=== PATIENT | female | born 1950 | race Caucasian/White ===

== ENCOUNTER → 2023-06-05 12:40 | Outpatient (CLI) | payer MEDICARE, OTHER, SELFPAY ==
--- NOTE | 2023-06-05 12:43 | DI.RAD.S_ITS ---
PROCEDURE: FL JOINT INJECTION LARGE RT INDICATIONS: DJD RT HIP COMPARISON: None. TECHNIQUE: The indications, alternatives, benefits, risks, and complications of the procedure were explained to the patient. Written informed consent was obtained and placed in the chart. The patient was placed in an appropriate position on the fluoroscopy table, and a site was chosen for percutaneous access under fluoroscopic guidance. The site was prepped and draped in a sterile fashion. Local anesthetic was administered using a 1% lidocaine solution. A hypodermic or spinal needle was then used to access the symptomatic joint. Intra-articular location of the needle tip was confirmed by injecting a small amount of contrast, followed by steroid administration. The needle was then withdrawn, and a bandage applied to the puncture site. FINDINGS: Joint injected: Right hip Medications injected: 4 mL of 40 mg/mL Kenalog and 0.5% Ropivacaine mixture. Complications: None. IMPRESSION: Successful fluoroscopically guided administration of steroid and anaesthetic solution into the right hip joint. Dictated by: Galdino Recinos M.D. on 06/05/2023 at 16:51 Approved by: Galdino Recinos M.D. on 06/05/2023 at 16:51
[2023-06-05] MEDS: iopamidoL 50 ML VIAL 10 ML INTRA-ARTI (13:40)
[2023-06-05] MEDS: LIDOCAINE 1% 20 ML INJ (13:40)
[2023-06-05] MEDS: ROPIVACAINE 0.5% PF 5 MG/ML 20ML VIAL 20 ML INJ (13:41)
[2023-06-05] MEDS: TRIAMCINOLONE 40 MG/ML VIAL INTRA-ARTI (13:42)
== END ==
PROVIDERS: Family Provider Internal Medicine; PCP Internal Medicine; Referring Provider Physician Assistant Surgical; Visit Provider Physician Assistant Surgical
DX: M16.11 Unilateral primary osteoarthritis, right hip (principal)
CPT/HCPCS: 20610; 77002

== ENCOUNTER → 2023-08-18 10:34 | Outpatient (CLI) | payer MEDICARE, OTHER, SELFPAY ==
--- NOTE | 2023-08-18 10:35 | DI.MRI.S_ITS ---
PROCEDURE: MR LUMBAR SPINE WO CON INDICATIONS: Spondylosis , lumbar region TECHNIQUE: Noncontrast sagittal T1 spin echo and T2 fast echo, sagittal STIR, and T2 fast spin echo through the lumbar spine. In cases with scoliosis, additional coronal T2 fast spin echo may be performed. COMPARISON: [facility], CR, XR LUMBAR SPINE 2 OR 3 VIEWS, 08/05/2023, 14:03. FINDINGS: Image quality: Excellent. Alignment and Curvature: Relatively mild levocurvature is centered at L3-L4. Retrolisthesis of L4 on L5 measures 8 mm. No pars defects are noted. Bone Marrow: Marrow is of normal overall signal. No acute vertebral body compression fractures. Spinal Cord: Conus medullaris terminates at the L1-L2 level. Visualized cord demonstrates normal signal and size. Paraspinous Soft Tissues: No paravertebral masses. T12-L1: No canal stenosis or foraminal stenosis. L1-L2: Severe disc height loss. Posterior disc post osteophyte. Bilateral facet hypertrophy. Mild central canal stenosis. A mild right foraminal narrowing and moderate left foraminal narrowing. L2-L3: Chronic disc height loss. Diffuse disc bulge. Facet and ligament hypertrophy. Moderate to severe canal stenosis, well seen on axial image 11 of series 7. There is severe narrowing of the medial aspect of the right foramen with right foraminal L2 nerve root impingement. Reference sagittal image 6 of series 2. There is moderate left foraminal narrowing with mild flattening deformity on the exiting left L2 nerve root. L3-L4: Severe chronic disc height loss. Posterior osteophyte plus disc. Facet hypertrophy. No significant canal stenosis. Severe right foraminal narrowing with right foraminal L3 nerve root impingement. Reference sagittal image 7 of series 2. There is moderate left foraminal narrowing with mild flattening deformity on the exiting left L3 nerve root. L4-L5: 8 mm anterolisthesis of L4 on L5. Uncovering of the disc, with diffuse posterior disc bulge. Exuberant facet and ligament hypertrophy. Moderate to severe central canal stenosis. Reference sagittal image 9 of series 2. Marked right foraminal narrowing with right foraminal L4 nerve root impingement. Reference sagittal image 7 of series 2. Moderate left foraminal narrowing with flattening deformity on the exiting left L4 nerve root. L5-S1: Diffuse disc bulge, eccentric to the left. Prominent bilateral facet hypertrophy. Mild narrowing of the left side of the canal. Moderate to severe left foraminal narrowing with a degree of left foraminal L5 nerve root impingement. IMPRESSION: 1. There is underlying scoliotic curvature and there is extensive multilevel facet arthropathy. 2. Canal stenosis is mild at L1-L2, moderate to severe at L2-L3, and moderate to severe at L4-L5. There is mild narrowing of the left side of the canal at L5-S1. 3. Significant multilevel foraminal narrowing as described above. Findings include severe right foraminal narrowing at L2-L3 and L3-L4, marked right foraminal narrowing at L4-L5, and moderate to severe left foraminal narrowing at L5-S1. There is multilevel associated foraminal nerve root impingement. Dictated by: Eddie Tay M.D. on 08/18/2023 at 12:11 Approved by: Eddie Tay M.D. on 08/18/2023 at 12:21
== END ==
LOC: MRI 10:34
PROVIDERS: Family Provider Internal Medicine; PCP Internal Medicine; Referring Provider Orthopaedic Surgery Orthopaedic Surgery of the Spine; Visit Provider Orthopaedic Surgery Orthopaedic Surgery of the Spine
DX: M47.816 Spondylosis without myelopathy or radiculopathy, lumbar region (principal); M47.817 Spondylosis without myelopathy or radiculopathy, lumbosacral region; M48.061 Spinal stenosis, lumbar region without neurogenic claudication; M48.07 Spinal stenosis, lumbosacral region; M41.9 Scoliosis, unspecified
CPT/HCPCS: 72148

== ENCOUNTER → 2023-12-15 09:45 | Outpatient (CLI) | payer MEDICARE, OTHER, SELFPAY ==
--- NOTE | 2023-12-15 10:25 | EKG_ITS ---
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
[2023-12-15 12:03] LABS: Add Manual Diff / Slide Review NO; Basophils Absolute Auto 0 /uL (0-100); Basophils Percent Auto 0.8 % (0-2); Eosinophils Absolute Auto 100 /uL (0-450); Eosinophils Percent Auto 2.2 % (2-4); Hemoglobin 13.9 g/dL (12.0-16.0); Lymphocytes Absolute Auto 1300 /uL (1100-4500); Lymphocytes Percent Auto 24.3 % (25-40); Mean Corpuscular HGB Conc 34.8 % (30-36); Mean Corpuscular Hemoglobin 30.7 PG (26-34); Mean Corpuscular Volume 88.3 fL (80-100); Monocytes Absolute Auto 400 /uL (0-900); Neutrophils Absolute Auto 3600 /uL (1500-7000); Neutrophils Percent Auto 65.7 % (50-75); Platelet Count 380 X10^3/uL (150-400); Red Blood Cell Count 4.53 X10^6/uL (4.0-5.2); Red Cell Distribution Width 12.8 % (11.6-14.8); White Blood Cell Count 5.5 X10^3/uL (4.5-11.0)
[2023-12-15 12:09] LABS: Hemoglobin A1C% w Est Avg Glu 5.6 % (4.0-6.0)
[2023-12-15 12:10] LABS: Albumin 4.5 g/dL (3.5-5.0); BUN Creatinine Ratio 29.3 (6-22); Blood Urea Nitrogen 22 mg/dL (7-17); Carbon Dioxide 28 mmol/L (22-32); Chloride 103 mmol/L (98-107); Estimated Glomerular Filt Rate > 60 mL/min (>60); Glucose 88 mg/dL (80-110); HEMOLYSIS < 15 (0-50); Potassium 4.1 mmol/L (3.4-5.1); Sodium 139 mmol/L (137-145)
[2023-12-15 12:17] LABS: Prealbumin 35.2 mg/dL (17.6-36.0)
[2023-12-15 12:28] LABS: Vitamin D 25 Hydroxy (D3) 62.9 ng/mL (30.0-100.0)
== END ==
PROVIDERS: Family Provider Internal Medicine; PCP Internal Medicine; Referring Provider Orthopaedic Surgery Adult Reconstructive Orthopaedic Surgery; Visit Provider Orthopaedic Surgery Adult Reconstructive Orthopaedic Surgery
DX: Z01.818 Encounter for other preprocedural examination (principal); E55.9 Vitamin D deficiency, unspecified; R73.9 Hyperglycemia, unspecified; Z01.812 Encounter for preprocedural laboratory examination; R77.0 Abnormality of albumin
CPT/HCPCS: 36415; 80048; 82040; 82306; 83036; 84134; 85025; 93005

== ENCOUNTER 2024-03-29 06:00 | Day surgery (SDC) | payer MEDICARE, OTHER, SELFPAY ==
[2024-03-22 09:23] VITALS: BMI 25.7
[2024-03-29] VITALS (17 sets, daily range): BP systolic 80–144; BP diastolic 39–82; PULSE 48–71; RESP 12–23; TEMP 36.1–36.8; O2SAT 94–100; BMI 25.7
--- NOTE | 2024-03-29 | DI.RAD.S_ITS ---
PROCEDURE: XR HIP W PEL IF DONE RT 2V INDICATIONS: ANTERIOR HIP TECHNIQUE: Two views of the hip were acquired. COMPARISON: [facility], CR, XR HIP W PEL IF DONE RT 2V, 03/29/2024, 9:26. FINDINGS: Bones: There are no osseous abnormalities. SI and hip joints: Right total hip prosthesis is anatomically aligned. Left hip and both SI joints are normal with align with arthritic change. Soft tissues: Soft tissue swelling and gas over the surgical site seen as expected IMPRESSION: Right hip prostheses anatomic alignment Dictated by: Alexx Gaines M.D. on 03/30/2024 at 9:24 Approved by: Aelxx Gaines M.D. on 03/30/2024 at 9:24
--- NOTE | 2024-03-29 06:00 | DI.RAD.S_ITS ---
PROCEDURE: XR HIP W PEL IF DONE RT 2V INDICATIONS: TKA TECHNIQUE: Intraoperative fluoroscopy during right hip arthroplasty. COMPARISON: None. FINDINGS: Intraoperative fluoroscopy for right hip arthroplasty. The joint is congruent. No unexpected fractures. IMPRESSION: Intraoperative fluoroscopy for right hip arthroplasty. Dictated by: Berkley Guerra M.D. on 03/29/2024 at 20:48 Approved by: Berkley Guerra M.D. on 03/29/2024 at 20:49
[2024-03-29] MEDS: MELOXICAM 7.5 MG TABLET 15 MG PO (06:45)
[2024-03-29] MEDS: ACETAMINOPHEN 325 MG TABLET 975 MG PO (06:45)
[2024-03-29] MEDS: LACTATED RINGERS 1,000 ML 42 ML IV ×2 (06:46→09:52)
[2024-03-29 07:18] LABS: COVID19 -Nasal RAPID Negative (Negative)
--- NOTE | 2024-03-29 07:47 | PM.PREOP ---
Pre-operative Note Interval Note History & Physical reviewed/Exam performed by Physician: Yes Changes to H&P: Yes H&P completed within 30 days and has changed as indicated here:: Patient reports recent onset of chest fullness particularly when lying down. No known history of CHF. This has been present for a week. We are going to check a BNP to evaluate for a new onset diagnosis of CHF before we move forward with surgery today
--- NOTE | 2024-03-29 07:52 | EKG_ITS ---
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
[2024-03-29 07:56] LABS: Add Manual Diff / Slide Review NO; Basophils Absolute Auto 0 /uL (0-100); Basophils Percent Auto 0.8 % (0-2); Eosinophils Absolute Auto 100 /uL (0-450); Eosinophils Percent Auto 1.8 % (2-4); Hematocrit 37.2 % (36-46); Hemoglobin 12.7 g/dL (12.0-16.0); Lymphocytes Absolute Auto 1100 /uL (1100-4500); Lymphocytes Percent Auto 25.3 % (25-40); Mean Corpuscular Hemoglobin 30.1 PG (26-34); Mean Corpuscular Volume 88.5 fL (80-100); Monocytes Absolute Auto 400 /uL (0-900); Monocytes Percent Auto 10.1 % (3-14); Neutrophils Absolute Auto 2700 /uL (1500-7000); Platelet Count 295 X10^3/uL (150-400); Red Blood Cell Count 4.21 X10^6/uL (4.0-5.2); White Blood Cell Count 4.4 X10^3/uL (4.5-11.0)
[2024-03-29 08:21] LABS: NT-proBNP (BNP-Adult 18+) < 20 pg/mL (<125)
--- NOTE | 2024-03-29 08:26 | PM.PN.1 ---
Subjective Subjective Interval history: BNP returned normal. Anesthesia team agrees with plan for moving forward with surgery based on this. I will have the patient remain in the hospital for at least one night and get respiratory therapy. She should get an outpatient workup for her symptoms from her PCP after discharge but at this time all members of the care team are in agreement with moving forward with the surgery today. Exam Vital Signs (past 8 hours): - 03/29/24 07:19 Temperature 97.6 F Pulse Rate 71 Respiratory Rate 12 Blood Pressure 143/80 H Pulse Oximetry 99 Oxygen Delivery Method Room Air Oxygen Delivery Method Room Air Objective Labs 03/29/24 07:50 Labs: Laboratory Results - last 24 hr 03/29/24 03/29/24 06:50 07:50 WBC 4.4 L RBC 4.21 Hgb 12.7 Hct 37.2 MCV 88.5 MCH 30.1 MCHC 34.0 RDW 13.0 Plt Count 295 Neut % (Auto) 62.0 Lymph % (Auto) 25.3 [place] % (Auto) 10.1 Eos % (Auto) 1.8 L Baso % (Auto) 0.8 Neut # (Auto) 2700 Lymph # (Auto) 1100 [place] # (Auto) 400 Eos # (Auto) 100 Baso # (Auto) 0 NT-Pro-B Natriuret Pep < 20 SARS-CoV-2 (PCR) Negative PFSH Medical History (Updated 03/22/24 @ 10:15 by Maira Sams RN) Rosacea Arthritis Pre-diabetes Impaired fasting glucose Hyperglycemia Spinal stenosis Seasonal allergies Hearing loss Anemia Vitamin D deficiency Osteoarthritis History of COVID-19 (10/2022) HTN (hypertension) HLD (hyperlipidemia) Surgical History (Updated 03/22/24 @ 10:12 by Maira Sams RN) History of carpal tunnel surgery of left wrist (2017) History of hysterectomy (2002) Hx of bilateral cataract extraction (2018) Hx of colonoscopy Social History household members: spouse Smoking Status: Never smoker alcohol intake: current Assessment & Plan Time-Based Coding :: [TOTAL MINUTES] spent with patient and on the chart (including review of chart, obtaining history, exam, reviewing outside data, placing orders, documenting exam and treatment plan, and counseling patient) on [DATE].
[2024-03-29] MEDS: CEFAZOLIN 2 GM/100 ML PREMIX 100 ML IV ×2 (08:40→16:21)
[2024-03-29] MEDS: TRANEXAMIC ACID 1,000 MG VIAL 1000 MG INJ ×2 (08:45→10:00)
--- NOTE | 2024-03-29 09:07 | SUR.OPER ---
Patient supine on padded Bath table, both arms on padded arm board at <90, both legs secured in padded traction boots and positioned per surgeon, padded post at patient's groin, pressure points checked and padded.
[2024-03-29] MEDS: ROPIVACAINE/EPI/CLONIDINE/KET 50 ML SYRINGE INJ (09:12)
--- NOTE | 2024-03-29 10:03 | P.OP_ITS ---
Operative Date/Time/Diagnoses Date of procedure: 03/29/24 Pre-op diagnosis: Right hip osteoarthritis Post-op diagnosis: same Procedure & Clinicians Procedure: Right total hip arthroplasty Same procedure as scheduled: Yes Surgeon: James Beatty Crusher Feeder: Citlali Freitas Anesthesia Type: Spinal, Sedation and Local Operative Notes Estimated Blood Loss (mL): 150 Procedure in detail: Right Uncemented Direct Anterior Depuy Total Hip Arthroplasty: Implants: * [place] Gription size 54 cup? * Actis femoral stem size 5 high offset? * 36 mm +5 ceramic femoral head? Procedure Summary: This 73-year-old female patient had symptoms of chest fullness when lying supine for the week preceding surgery so prior to moving forward with surgery today we got a BNP to ensure she had not had the onset of a new diagnosis of CHF. That returned normal so we elected to move forward with the surgery and will admit her overnight for respiratory therapy and plan for an outpatient workup with her primary care doctor regarding her chest symptoms. Intraoperatively I utilized templated implants for all parameters with the exception of the cup size, which was 1 size larger than had been templated for. Trialing was appropriate with all parameters with the initially trialed implants so those sizes were utilized. She had relatively lax soft tissues and I was able to achieve significant femoral elevation without a conjoined tendon release while broaching the femur. Procedure in Detail: This patient was seen preoperatively and evaluated for hip pain which was refractory to numerous nonoperative treatment modalities. Their hip pain correlated with radiographic changes demonstrating significant degeneration in the hip joint. The risks and benefits of continued nonoperative management v ersus operative management were discussed at length and all of the patient?s questions were answered. Additional educational materials providing further details beyond our discussion in clinic were provided via a publicly available patient education video which included the incidence of medical complications associated with total hip arthroplasty, reasons for revision following total hip arthroplasty, and patient satisfaction rates following total hip arthroplasty. That video can be accessed at [email or web address] . With this understanding of the risks inherent to the procedure, the patient elected to move forward with operative management. Following preoperative optimization, the patient was scheduled for surgery. The patient was met in the preoperative holding area the day of the procedure and all questions were answered. The patient?s nares were swabbed with betadine in order to decolonize them from MRSA. Informed consent was signed and the right limb was marked with indelible ink.? The patient was brought back to the operating room where anesthesia was induced. The patient was transferred to the [place] table and all bony prominences were padded. The operative site was prepped and draped in the usual sterile fashion. Prior to incision, tranexamic acid and cefazolin were administered. Operative templating images were displayed demonstrating the anticipated implant sizes and correct operative extremity. A timeout procedure was performed verifying the patient?s identity, medical comorbidities, allergies, relevant medications, anesthesia type and the surgical plan. All present were in agreement. The assistance of a physician legal executive assistant was required for positioning, room setup, soft tissue retraction and wound closure. Without this assistance, the procedure would have been significantly more challenging and time consuming.?? A direct anterior approach to the hip was utilized. This was performed with a longitudinal incision through a He[place] interval. The incision was planned 2 cm distal and 2 cm lateral to the ASIS extending towards the lateral patella, in line with the muscle body of the TFL. Following incision, the subcutaneous tissue was dissected while taking care to avoid injury to the lateral femoral cutaneous nerve. The fascia overlying the TFL was identified by dissecting off the overlying fat and identifying perforating vessels to the TFL. The TFL fascia was incised and dissected away from the medial border of the TFL. A cobra retractor was placed over the superior femoral neck between the abductors and the hip capsule and used to reflect the TFL laterally. A [place] self-retainer was then placed in the distal aspect of the wound between the TFL and the rectus femoris. This was tensioned to open up the direct anterior interval and the lateral circumflex vessels were identified and coagulated using electrocautery. The floor of the TFL fascia was incised, exposing the pericapsular fat overlying the hip capsule. A second cobra retractor was placed on the inferior femoral neck. A double-bent soft tissue retractor was placed on the anterior wall of the acetabulum and used to tension the reflected head of rectus femoris, which was then released in order to limit soft tissue tension. A capsulotomy was made in the midline of the anterior hip capsule in line with the femoral neck ending at the vastus tubercle. The double-bent retractor was removed in order to limit the amount of time that a soft tissue retractor remained on the anterior wall and protect the femoral nerve. Tag stitches were placed in the superior and inferior leaflets of the hip capsule. An [place] soft tissue retractor was introduced over the tag stitches and tensioned in the interval between the rectus femoris and the TFL in order to retract and protect those muscles. The cobra retractors were replaced intracapsularly, with one over the superior neck in the pocket created by the base of the greater trochanter and the other on the femoral head. The capsulotomy was extended laterally to the base of the greater trochanter and medially to the lesser trochanter. This required externally rotating the hip. Once the lesser trochanter had been identified, a neck cut was planned according to measurements from preoperative templating. A ruler was cut at the length measured between the superior aspect of the lesser trochanter and the collar of the prosthesis. This line was extended towards the inferior aspect of the lateral cobra retractor to plan a cut which would leave minimal residual femoral neck laterally. The neck was cut at 60 degrees of external rotation along that line. A second cut was performed to remove a large napkin ring and facilitate head extraction. The napkin ring cut and femoral head were removed.?? A broad anterior wall retractor was placed between the labrum and the anterior capsule so that the anterior capsule would prevent capturing and pinching the femoral nerve anteriorly. An additional retractor was placed on the posterior wall. External rotation and traction were applied through the [place] table so that the cut surface of the femoral neck would not restrict access to the acetabulum. The labrum was excised sharply and the pulvinar was excised with electrocautery to limit bleeding from branches of the obturator artery. Acetabular reamers were selected based on preoperative templating and measurements of the excised femoral head. These were introduced into the acetabulum. Fluoroscopy was utilized to replicate a standing AP pelvis radiograph by centering over the pelvis, rotating until there was appropriate symmetry between the obturator foramen, and introducing caudal tilt to match the position of the pubic symphysis relative to the sacrococcygeal junction according to the patient?s anatomy. Fluoroscopy was utilized to ensure appropriate reaming depth. Once satisfied with the reaming depth corresponding to the preoperative template and the pinch fit between the columns, an appropriate sized acetabular cup was selected which would provide 1 mm of press-fit. This cup was introduced and manipulated until appropriate abduction and anteversion angles were obtained with careful attention to appropriate abduction and anteversion angles as evaluated by the position of the cup relative to the anterior and posterior wa lls of the acetabulum and the AP fluoroscopy which recreated the patient?s standing radiograph. The cup was impacted into place. Peripheral osteophytes were removed. The acetabular liner was then placed with care to ensure locking of the locking mechanism.? Attention was then turned to the femur. All retractors were removed, traction was released, a retractor was placed in the interval between the hip capsule and the gluteus minimus, and the hip was externally rotated to 90 degrees. Traction was applied through the [place] table to tension the lateral capsule and this was released using electrocautery. Traction was released and a [place] hook was placed posteriorly around the proximal femur at the level of the vastus ridge. The table height was lowered in order to restrict the tension on the anterior structures during hip hyperextension to limit the risk of femoral nerve palsy. With traction off and the hip at 90 degrees of external rotation, the hip was hyperextended and adducted while manually elevating the femur away from the acetabulum with the [place] hook to ensure it would not be caught behind the greater trochanter. An asymmetric retractor was placed over the calcar and a broad double-pronged retractor was placed over the greater trochanter. The tag stitch capturing the lateral leaflet of the capsule was moved to the medial side, leaving the conjoined and piriformis tendons isolated in the face of the greater trochanter. The hip was externally rotated and elevated. A release of the conjoined tendon was not necessary in order to obtain adequate exposure for broaching. The canal was opened with an opening broach and a rasp was used to remove cancellous bone. A rongeur was used to remove the residual lateral bone at the base of the greater trochanter to avoid placing the stem in varus. The femur was then broached to the appropriate sized stem yielding good rotational fit and fill of the canal as well as appropriate version of the stem trial. Neck and head trials were placed, all retractors were removed and the hip was returned to neutral abduction and extension. I then reduced the hip. Initial trialing was performed with a size 5 broach, a high offset neck and a +5 head. I initially manually externally rotated the hip and found no instability with maximum external rotation to 125?. I then locked the hip in 45 degrees of external rotation and dropped it to the floor with traction off which demonstrated no instability. An AP pelvis fluoroscopic image matching the preoperative standing radiograph with both lesser trochanters visible and both hips in 40 degrees of external rotation demonstrated appropriate leg length and offset. AP and lateral hip fluoroscopic images were obtained to evaluate the broach size which demonstrated appropriate canal fill. The hip was dislocated and I returned to the broaching position. Based on my evaluation during initial trialing I planned to place these definitive implants. The definitive stem was placed and the trunnion was cleaned and dried. I placed a ceramic head onto the trunnion and impacted it into place on the [place] taper.?? All retractors were removed and the hip was reduced. A dilute mixture of betadi ne and peroxide was used to bathe the soft tissues during final fluoroscopic assessment. Appropriate component positioning was confirmed on an AP pelvis radiograph with the operative and nonoperative legs in 40 degrees of external rotation, evaluating leg length and offset. Appropriate stem fill was evaluated on AP and lateral hip radiographs. No fractures were identified on these radiographs. There was no hip instability with maximum (125?) external rotation as well as a 45 degree drop test. The hip was copiously irrigated with pulse lavage. The capsule was closed with absorbable interrupted suture. The TFL fascia was closed with barbed suture while carefully protecting the lateral femoral cutaneous nerve from entrapment. A mixture of Ropivacaine, Epinephrine, Clonidine and Toradol was infiltrated throughout the soft tissues. The skin was closed with 2-0 and 3-0 sutures. Surgical glue was applied and a soft dressing was placed.??The sponge, instrument and needle counts were reported as being correct at the end of the case.??No obvious complications occurred. The patient was transferred from the [place] table back to a stretcher. The patient emerged from anesthesia without difficulty and was taken to the PACU in a stable condition.? Plan for aftercare: * Anterior hip precautions * Weightbearing as tolerated * Aspirin 81 twice per day for DVT prophylaxis * Anticipate discharge home tomorrow * Respiratory therapy to be ordered during her hospital stay given her symptoms of chest fullness in the week preceding surgery * Change into normal clothes upon arrival on the hospital floor * Mobilize in the halls as much as is logistically possible. If physical therapy is unavailable for mobilization, then patient should mobilize with nursing staff * Multimodal pain regimen with no IV opioids ordered * Apply ice machine to operative hip. Ensure that sufficient ice is in the chamber for the pad to remain cold * Follow up at [facility] in 2 weeks * Detailed postoperative instructions available at [email or web address]
[2024-03-29] MEDS: ALBUMIN HUMAN 12.5 GM/250 ML VIAL IV ×2 (10:56→11:30)
[2024-03-29] MEDS: IBUPROFEN 600 MG TABLET PO ×2 (13:17→17:45)
[2024-03-29] MEDS: ACETAMINOPHEN 325 MG TABLET 650 MG PO ×2 (13:18→17:43)
--- NOTE | 2024-03-29 13:19 | PC.NURSE ---
Pt to room 203 via bed from PACU. Awake alert and oriented x 3. Pt denies pain, nausea, or shortness of breath. SCD's on and running, IV infusing as ordered. Bed alarm on for safety. Ice machine to right hip. Pt oriented to room call light, bed controls and tv controls. Pt agrees to not get up without assistance and to call for assistance as needed.
--- NOTE | 2024-03-29 14:12 | PT.IIE ---
Current Diagnoses Unilateral primary osteoarthritis, right hip (03/29/24) Surgery Performed Operation Date: 03/29/24 07:45 Actual Procedures p Total Hip Arthroplasty/Anterior Approach(Right) - James Beatty MD Surgical History (Last Updated 03/22/24 @ 10:12 by Maira Sams, RN) History of carpal tunnel surgery of left wrist (2016) History of hysterectomy (2001) Hx of bilateral cataract extraction (2017) Hx of colonoscopy Medical History (Last Updated 03/22/24 @ 10:15 by Maira Sams RN) Anemia Arthritis Hearing loss History of COVID-19 (10/2022) HLD (hyperlipidemia) HTN (hypertension) Hyperglycemia Impaired fasting glucose Osteoarthritis Pre-diabetes Rosacea Seasonal allergies Spinal stenosis Vitamin D deficiency Physical Therapy Inpatient Evaluation/Re-Eval M1 PT/OT-IP Prior Functional Status Start: 03/29/24 13:48 Freq: NEEDED Status: Active Protocol: Document 03/29/24 13:50 MB (Rec: 03/29/24 14:12 MB [id number]) Medical Review Prior Functional Status Medical History Reviewed Yes Diet/Fluid Consistency Regular Communication WNLs Mobility and Gait I Activities of Daily Living and IADL's I Social History Household Members spouse Living Arrangements House Number of Stairs To Enter/Railing? Pt reports she does not have to do stairs to enter home or once inside Home Environment Standard Height Toilet,Walk in Shower Home Equipment Front Wheel Walker,Shower Seat without Backrest,Hand Held Shower,Grab Bars In Shower Employment Status Retired M2 PT-IP Current Condition Start: 03/29/24 13:48 Freq: NEEDED Status: Active Protocol: Document 03/29/24 13:50 MB (Rec: 03/29/24 14:12 MB [id number]) Physical Therapy Current Condition Current Condition Evaluation Date 03/29/24 Treatment Diagnosis R anterior THR M3 PT-IP Subjective Start: 03/29/24 13:48 Freq: NEEDED Status: Active Protocol: Document 03/29/24 13:50 MB (Rec: 03/29/24 14:12 MB [id number]) Subjective Physical Therapy Visit Type Type Initial Evaluation Visit Start Time 13:50 Visit Stop Time 14:05 Number of INFORMATION SCIENTIST Visits 0 Physical Therapy Visit Comments Patient Comments Pt reports she has some numbness in feet but she can move her legs, initiated eval and check for orthostasis Therapy Pain Assessment Pain When Pain Assessed At Rest Pain Present Pain Present Denied Pain M4 PT-IP Mobility and Gait Start: 03/29/24 13:48 Freq: NEEDED Status: Active Protocol: Document 03/29/24 13:50 MB (Rec: 03/29/24 14:12 MB [id number]) PT-Bed Mobility Assessment Supine to Sit Supine to Sit Independent Sit to Supine Sit to Supine Independent Scooting Scooting to Edge of Bed Standby Assistance PT-Transfer Assessment Sit to and From Stand Sit to and from Stand Minimal Assistance,1 Person Assistance,Use of Upper Extremities Equipment Transfer Assistive Device Gait Belt,Front Wheeled Walker Orthotic/Prosthetic Devices or Brace: No Comments Mobility Comments Pt cannot safely take a step d /t reporting she cannot feel her leg well once standing. Orthostatics are negative with BP and HR in RUE: supine 139/ 67, 64; standing 144/82, 78. PT-Balance Assessment Sitting Balance and Reactions Static Sitting Balance Ability Good Dynamic Sitting Balance Ability Good Standing Balance and Reactions Static Standing Balance Ability Fair Dynamic Standing Balance Ability Poor Device Used RW M5 PT-IP Objective Assessments Start: 03/29/24 13:48 Freq: NEEDED Status: Active Protocol: Document 03/29/24 13:50 MB (Rec: 03/29/24 14:12 MB [id number]) Orientation Orientation/Cognition Level of Alertness Alert Orientation Name,Age,Birthday,Month,Date, Year,Day of Week,Place, Situation Language Function Ability No Deficits Noted Safety Awareness Decreased Safety Awareness Memory Description No Deficits Noted Gross Range of Motion Upper Extremity ROM Impairments Defer to OT Lower Extremity ROM Assessment Bilaterally Impaired Impairments Lacks right greater than left great toe extension Strength Lower Extremity Strength Assessment Bilaterally Impaired Comments Strength Comments R great toe extension 2+/5, left 3+/5, B quads grossly 5/5 Coordination Assessment Gross Coordination Gross Coordination Impaired Sensation Assessment Sensation Gross Sensation Right LE Impaired Muscle Tone Muscle Tone WNL Yes M6 PT-IP Treatment Start: 03/29/24 13:48 Freq: NEEDED Status: Active Protocol: Document 03/29/24 13:50 MB (Rec: 03/29/24 14:12 MB [id number]) Physical Therapy Treatment Exercises Exercises Ankle Pumps,Gluteal Sets,Quad Sets,Heel Slides Education Education Provided Precautions,Weight Bearing Status,Post-Op Packet,Safety M7 PT-IP Assessment and Plan Start: 03/29/24 13:48 Freq: NEEDED Status: Active Protocol: Document 03/29/24 13:50 MB (Rec: 03/29/24 14:12 MB [id number]) PT Summary Assessment and Plan Potential Rehabilitation Potential Good Status of Condition at Evaluation Evolving Summary Impairments ROM,Strength,Balance, Coordination,Sensation,Bed Mobility,Transfers,Gait, Activity Tolerance Assessment Summary Pt is a pleasant 73 y/o female same day right anterior THR. Pt cannot current stand well or step on right LE given post -op numbness. Her orthostatics are negative. She is I with bed mobility and does not have steps at home and her can assist at home. She has OPPT set up. Anticipate good progression with mobility once feeling is restored. Goals Transfer Goal Independent,Front Wheeled Walker Gait Goal Independent,Front Wheel Walker Gait Distance 100 Days to Meet Goals 2 Frequency of Treatment Frequency Of Treatment Twice a Day Other frequency +1 Treatment Plan Physical Therapy Treatment Plan Bed Mobility Training,Transfer Training,Gait Training, Therapeutic Exercise,Balance Retraining,Post Op Education, Discharge Planning,Hot or Cold Pack,Neuromuscular Re-ed, Coordination Retraining,Manual Therapy Precautions Other Precautions No hyperextension right hip Weight Bearing Status Weight Bearing Status Weight Bear as Tolerated Recommendations To Nursing Amount of Assist Needed 2 Person Assist Discharge Recommendations PT Discharge Recommendations Home with Assistance, Outpatient PT Transportation Needs at Discharge Private Vehicle
[2024-03-29] MEDS: LACTATED RINGERS 1,000 ML 100 ML IV (14:38)
[2024-03-29] MEDS: ASPIRIN EC 81 MG TABLET PO (20:55)
[2024-03-29] MEDS: DOCUSATE 100 MG CAPSULE PO (20:55)
[2024-03-29] MEDS: ATORVASTATIN 20 MG TABLET 10 MG PO (20:59)
--- NOTE | 2024-03-29 21:49 | PC.NURSE ---
NOC: Pt OOB with 2PA/FWW/gait belt, pivot transfer to [facility]. Pt tolerated well, steady on feet but slow. No dizziness or lightheadedness. Pt urinated 650; pt returned to bed without issue. Pt resting comfortably, bed low/locked, call light within reach, plan of care continues.
[2024-03-30] MEDS: OXYCODONE IR 5 MG TABLET PO (00:10)
[2024-03-30] MEDS: CEFAZOLIN 2 GM/100 ML PREMIX 100 ML IV (00:10)
[2024-03-30] MEDS: ACETAMINOPHEN 325 MG TABLET 650 MG PO ×3 (00:10→11:32)
[2024-03-30] MEDS: LACTATED RINGERS 1,000 ML 100 ML IV (00:38)
[2024-03-30 01:34] VITALS: BP 137/75; PULSE 71; RESP 12; TEMP 36.8; O2SAT 99
[2024-03-30 04:22] LABS: Hematocrit 26.6 % (36-46); Hemoglobin 9.3 g/dL (12.0-16.0)
[2024-03-30] MEDS: IBUPROFEN 600 MG TABLET PO ×2 (05:51→11:40)
--- NOTE | 2024-03-30 07:41 | P.DS_ITS ---
History of Present Illness History of Present Illness Chief complaint: OPB Narrative: Lupe is a pleasant 73-year-old female who is postop day # 1 status post right anterior total hip arthroplasty by Dr. Beatty. This morning she reports she is doing well, she states that she was able sleep through the night fairly well. Her pain is controlled with oral pain medicine alone. She would like to discharge today if possible. She is urinating well without issue. She lives at home with her in [facility], they have stairs in the house but she will be able to live on the main level for as long as needed during her recovery. She also states she has friendly neighbors nearby who can help her and her as needed. She has postop pain medication at home already, she has her walker, ice machine as well. She denies history of blood clot and will be maintained on aspirin b.i.d. for DVT prophylaxis postoperatively. She has postop physical therapy appointment scheduled at [facility]. She will be staying in a hotel in [place] for the next few nights before going back to [facility]. Denies fever, chills, chest pain, SOB, nausea, vomiting. She does endorse feelings of ?chest tightness? although she clalifies it is not pain. She had reassuring BNP an EKG performed preoperatively. She has a PCP at [facility] and I encouraged her to follow up with her primary care provider regarding the symptoms upon discharge. Operative Date/Time/Diagnoses Date of procedure: 03/29/24 Pre-op diagnosis: Right hip osteoarthritis Post-op diagnosis: same Procedure & Clinicians Procedure: Right total hip arthroplasty Same procedure as scheduled: Yes Surgeon: James Beatty Vein Access Technician: Citlali Freitas Anesthesia Type: Spinal, Sedation and Local Operative Notes Estimated Blood Loss (mL): 150 Procedure in detail: Right Uncemented Direct Anterior Depuy Total Hip Arthroplasty: Implants: * [place] Gription size 54 cup? * Actis femoral stem size 5 high offset? * 36 mm +5 ceramic femoral head? Discharge Providers Provider Discharge Date: 03/30/24 Primary care physician: NURY Lu Consults: 03/29/24 06:00 Consult to Anesthesiology Routine Comment: Consulting Provider: Anesthesiologist Reason for consultation: Regional block for post operative pain control Has provider been notified: No 03/29/24 12:23 Consult to Discharge Planning Routine Comment: Consult to Occupational Therapy Evaluate & Treat Comment: Physician Instructions: Evaluate and treat Consult to Physical Therapy Evaluate & Treat Comment: Physician Instructions: post op SKY protocol Discharge provider: Vandana Hernandez PA-C Summary Hospital Course Discharge Diagnosis: Stable status post right anterior total hip arthroplasty Hospital Course: Uncomplicated hospital course, she had some preoperative symptoms of chest tightness which have improved, she had negative BNP and EKG on the day of surgery. Exam Vital Signs (past 8 hours): - 03/30/24 01:34 Temperature 98.2 F Pulse Rate 71 Respiratory Rate 12 Blood Pressure 137/75 Pulse Oximetry 99 Oxygen Flow Rate 0 Oxygen Delivery Method Room Air Oxygen Flow Rate 0 Narrative Exam Narrative: Patient lying comfortably in bed during our interview today. No acute distress. AOx3. Grossly normal alignment of the RLE with mild-moderate swelling to the right thigh, mild ecchymosis. 5/5 strength with DF, PF, EHL bilaterally. She is able to flex her knee from 0- 90. Gross sensation intact throughout bilateral lower extremities. Calves soft and non-tender bilaterally. Brisk capillary refill, pulses intact. Post-surgical Aquacel dressing clean, dry and intact over the right hip without drainage. I was able to observe her walking well although with some internal rotation of her right hip Objective Labs 03/30/24 03:45 Labs: Laboratory Results - last 24 hr 03/29/24 03/30/24 07:50 03:45 WBC 4.4 L RBC 4.21 Hgb 12.7 9.3 L Hct 37.2 26.6 L MCV 88.5 MCH 30.1 MCHC 34.0 RDW 13.0 Plt Count 295 Neut % (Auto) 62.0 Lymph % (Auto) 25.3 [place] % (Auto) 10.1 Eos % (Auto) 1.8 L Baso % (Auto) 0.8 Neut # (Auto) 2700 Lymph # (Auto) 1100 [place] # (Auto) 400 Eos # (Auto) 100 Baso # (Auto) 0 NT-Pro-B Natriuret Pep < 20 PFSH Medical History (Updated 03/22/24 @ 10:15 by Maira Sams RN) Rosacea Arthritis Pre-diabetes Impaired fasting glucose Hyperglycemia Spinal stenosis Seasonal allergies Hearing loss Anemia Vitamin D deficiency Osteoarthritis History of COVID-19 (10/2022) HTN (hypertension) HLD (hyperlipidemia) Surgical History (Updated 03/22/24 @ 10:12 by Maira Sams RN) History of carpal tunnel surgery of left wrist (2017) History of hysterectomy (2002) Hx of bilateral cataract extraction (2018) Hx of colonoscopy Social History household members: spouse Smoking Status: Never smoker alcohol intake: current Discharge Assessment & Plan Assessment and Plan Assessment: Stable status post right anterior total hip arthroplasty Plan of Treatment: 1) Plan to discharge to home today with pending PT evaluation. 2) Continue multimodal pain management with ice to the hip for additional pain control. She has ice machine and postop pain medications at home already. 3) ASA b.i.d. for DVT prophylaxis. 4) Start outpatient physical therapy to work on range of motion and mobility. Maintain anterior hip precautions, weight-bearing as tolerated. 5) Keep dressing intact, clean, dry until 2 week postop appointment. No soaking the incision site in pools or tubs. No topical ointments or creams to the incision site. 6) Follow up at [facility] orthopedics in 2 weeks for a postop appointment and wound check. 7) Encouraged patient to follow up with primary care physician at [facility] regarding her pre-op sx of chest tightness. All patient's questions were answered, they demonstrates understanding and are in agreement with the plan. Call our office if any questions or concerns arise. Discharge Plan Discharge Plan Patient Disposition: Home Discharge orders & Medications Discharge Orders: Discharge (Order); Ordered 03/30/24 Ordered By: Vandana Hernandez Prescriptions: New acetaminophen 325 mg Tablet 650 mg PO Q6H Qty: 90 0RF aspirin 81 mg Tablet,Delayed Release (Dr/Ec) 81 mg PO BID Qty: 90 0RF docusate sodium 100 mg Capsule 100 mg PO BID Qty: 30 0RF ibuprofen 600 mg Tablet 600 mg PO Q6H Qty: 60 0RF ondansetron 4 mg Tablet,Disintegrating 4 mg PO Q4HR PRN (Reason: Nausea) Qty: 7 0RF oxycodone 5 mg Tablet 5 mg PO Q4-6H PRN (Reason: Pain, Severe (7-10)) Qty: 25 0RF Continued atorvastatin 10 mg Tablet 10 mg PO BEDTIME terbinafine HCl 250 mg Tablet 250 mg PO DAILY lisinopril 40 mg Tablet 40 mg PO BEDTIME Discontinued ibuprofen 200 mg Capsule 400 mg PO DAILY PRN (Reason: Pain) Follow up/Referrals: Liliana Lezama ARNP [Primary Care Provider] - James Beatty MD [Physician] - 04/09/24 11:30 am (Follow up w/ RUDY Tapia, at [facility] office in [place].) Diet/Activity/Treatments Diet: Diet as Tolerated Activity: Weightbearing as tolerated. Anterior hip precautions. Cold/Heat Therapy: Ice to hip as needed for pain. Skin/Wound/Dressing Care Report to your healthcare provider any signs of infection, such as:: chills, fever, night sweats, unusual drainage and unusual redness Dressing: May shower. Leave Aquacel dressing in place until follow up in office. No bathing or otherwise soaking incision. Call the office if the dressing becomes saturated inside. Visit Report/Discharge Packet Instructions: DI for Hip Replacement Stand Alone Forms: Patient Portal/API, Surgery Discharge Discharge Data Primary Care Provider: Liliana Lezama Attending Provider: James Beatty Quality VTE Deep Vein Thrombosis/Pulmonary Embolism Present on Admission: No
[2024-03-30 07:42] VITALS: BP 118/63; PULSE 66; RESP 19; TEMP 37.1; O2SAT 97
--- NOTE | 2024-03-30 08:19 | PT.IPTN ---
Current Diagnoses Unilateral primary osteoarthritis, right hip (03/29/24) Surgery Performed Operation Date: 03/29/24 07:45 Actual Procedures p Total Hip Arthroplasty/Anterior Approach(Right) - James Beatty MD Physical Therapy Treatment Note M2 PT-IP Current Condition Start: 03/29/24 13:48 Freq: NEEDED Status: Active Protocol: Document 03/29/24 13:50 MB (Rec: 03/29/24 14:12 MB [id number]) Physical Therapy Current Condition Current Condition Evaluation Date 03/29/24 Treatment Diagnosis R anterior THR M3 PT-IP Subjective Start: 03/29/24 13:48 Freq: NEEDED Status: Active Protocol: Document 03/30/24 07:25 MB (Rec: 03/30/24 08:18 MB [id number]) Subjective Physical Therapy Visit Type Type Treatment Note Visit Start Time 07:25 Visit Stop Time 07:48 Number of MANAGER TRANSPORTATION Visits 0 Physical Therapy Visit Comments Patient Comments Pt is agreeable to mobility and she is feeling better. Therapy Pain Assessment Pain When Pain Assessed At Rest Pain Present Pain Present Pain Reported Location Right Hip Intensity 2 Scale Used Numeric (0 - 10) M4 PT-IP Mobility and Gait Start: 03/29/24 13:48 Freq: NEEDED Status: Active Protocol: Document 03/30/24 07:25 MB (Rec: 03/30/24 08:18 MB [id number]) PT-Bed Mobility Assessment Supine to Sit Supine to Sit Independent Sit to Supine Sit to Supine Independent Scooting Scooting to Edge of Bed Independent PT-Transfer Assessment Sit to and From Stand Sit to and from Stand Standby Assistance,1 Person Assistance,Use of Upper Extremities Equipment Transfer Assistive Device Gait Belt,Front Wheeled Walker Orthotic/Prosthetic Devices or Brace: No Transfers Transfer Destination Chair Transfer Technique Ambulation Transfer Ability Level of Assist Standby Assistance,1 Person Assistance,Use of Upper Extremities Comments Mobility Comments Pt is somewhat impulsive and gets up to EOB as PT is assisting her from the recliner and pt moves to side of bed without managing IV line, she requires cues to slow down, take her time for turns Gait Assessment Gait Gait Assistance Required: Standby Assistance Distance (Feet) 200 Able to Maintain Weight Bearing Status Yes During Gait Assistive Devices Assistive Device Gait Belt,Front Wheeled Walker Orthotic/Prosthetic Devices or Brace: No Factors Limiting Gait Function Factors Limiting Gait Function Incoordination,Limited Range of Motion,Pain,Poor Balance, Poor Safety Awareness Comments Gait Comments RLE presents in mild IR with right great toe medial and increased valgus and right leg is functionally longer than the left today. Pt is able to correct this about 50% with increased gait distance and functional leg length difference con't PT-Balance Assessment Sitting Balance and Reactions Static Sitting Balance Ability Normal Dynamic Sitting Balance Ability Good Standing Balance and Reactions Static Standing Balance Ability Good Dynamic Standing Balance Ability Good Device Used RW M5 PT-IP Objective Assessments Start: 03/29/24 13:48 Freq: NEEDED Status: Active Protocol: Document 03/29/24 13:50 MB (Rec: 03/29/24 14:12 MB [id number]) Orientation Orientation/Cognition Level of Alertness Alert Orientation Name,Age,Birthday,Month,Date, Year,Day of Week,Place, Situation Language Function Ability No Deficits Noted Safety Awareness Decreased Safety Awareness Memory Description No Deficits Noted Gross Range of Motion Upper Extremity ROM Impairments Defer to OT Lower Extremity ROM Assessment Bilaterally Impaired Impairments Lacks right greater than left great toe extension Strength Lower Extremity Strength Assessment Bilaterally Impaired Comments Strength Comments R great toe extension 2+/5, left 3+/5, B quads grossly 5/5 Coordination Assessment Gross Coordination Gross Coordination Impaired Sensation Assessment Sensation Gross Sensation Right LE Impaired Muscle Tone Muscle Tone WNL Yes M6 PT-IP Treatment Start: 03/29/24 13:48 Freq: NEEDED Status: Active Protocol: Document 03/29/24 13:50 MB (Rec: 03/29/24 14:12 MB [id number]) Physical Therapy Treatment Exercises Exercises Ankle Pumps,Gluteal Sets,Quad Sets,Heel Slides Education Education Provided Precautions,Weight Bearing Status,Post-Op Packet,Safety M7 PT-IP Assessment and Plan Start: 03/29/24 13:48 Freq: NEEDED Status: Active Protocol: Document 03/30/24 07:25 MB (Rec: 03/30/24 08:18 MB [id number]) PT Summary Assessment and Plan Potential Rehabilitation Potential Good Status of Condition at Evaluation Evolving Summary Impairments ROM,Strength,Balance, Coordination,Sensation,Bed Mobility,Transfers,Gait, Activity Tolerance Progress Towards Goals Progressing Toward Goals Assessment Summary Pt has met acute care PT goals . See gait comments for RLE presentation with gait today. No further skilled acute PT needs. Will d/c PT. Goals Transfer Goal Independent,Front Wheeled Walker Gait Goal Independent,Front Wheel Walker Gait Distance 100 Days to Meet Goals 2 Frequency of Treatment Frequency Of Treatment Discharge Treatment Plan Physical Therapy Treatment Plan Bed Mobility Training,Transfer Training,Gait Training, Therapeutic Exercise,Balance Retraining,Post Op Education, Discharge Planning,Hot or Cold Pack,Neuromuscular Re-ed, Coordination Retraining,Manual Therapy Precautions Other Precautions No hyperextension right hip Weight Bearing Status Weight Bearing Status Weight Bear as Tolerated Recommendations To Nursing Amount of Assist Needed Standby Assistance Discharge Recommendations PT Discharge Recommendations Home with Assistance, Outpatient PT Transportation Needs at Discharge Private Vehicle
[2024-03-30] MEDS: DOCUSATE 100 MG CAPSULE PO (08:49)
[2024-03-30] MEDS: ASPIRIN EC 81 MG TABLET PO (08:49)
--- NOTE | 2024-03-30 09:25 | OT.IP.TRT ---
Current Diagnoses Unilateral primary osteoarthritis, right hip (03/29/24) Surgery Performed Operation Date: 03/29/24 07:45 Actual Procedures p Total Hip Arthroplasty/Anterior Approach(Right) - James Beatty MD Occupational Therapy Treatment Note M2 OT-IP Current Condition Start: 03/30/24 09:25 Freq: Status: Active Protocol: Document 03/30/24 09:26 [facility] (Rec: 03/30/24 09:34 [facility] [id number]) Occupational Therapy Current Condition Current Condition Evaluation Date 03/30/24 Treatment Diagnosis S/P R SKY anterior Diagnosis Onset Date 03/29/24 Post Operative Precautions Anterior Hip Precautions No Hip Extension,No Hip External Rotation M3 OT- IP Subjective and Pain Start: 03/30/24 09:25 Freq: Status: Active Protocol: Document 03/30/24 09:26 [facility] (Rec: 03/30/24 09:34 [facility] [id number]) OT- Subjective Occupational Therapy Visit Type Type Initial Evaluation Visit Start Time 08:45 Visit Stop Time 09:25 Occupational Therapy Visit Comments Patient Comments Pt agreed to get dressed. Noted RLE positioning right foot turn inward. Patient/Caregiver Goals TO go home. OT Pain Assessment Pain When Pain Assessed At Rest Pain Present Pain Present Pain Reported Location Right Hip Intensity 2 Scale Used Numeric (0 - 10) M4 OT- IP ADL's Start: 03/30/24 09:25 Freq: Status: Active Protocol: Document 03/30/24 09:26 [facility] (Rec: 03/30/24 09:34 [facility] [id number]) OT MYP-[id number]-[id number] General Evaluation Self-Feeding Ability Independent OT ADL-Grooming General Evaluation Grooming Ability Standby Assistance Comments OT Grooming Comments VC to keep the FWW in front of her. OT ADL-Oral Care General Eval Oral Care Ability Independent OT ADL-Dressing General Eval Upper Body Dressing Ability Independent Lower Body Dressing Ability Moderate Assistance Areas Needing Assistance Socks,Shoes Comments OT Dressing Comments ABle to practice use of machine heddle cleaner and sock aid. Note pt hear popping sound while trying to get on her pants. No increased in pain noted. Pt's nurse notified. OT ADL-Toileting Comments OT Toileting Comments Educated pt to be mindful of her RLE positioning during hygiene and clothing needs. OT ADL-Bathing Comments OT Bathing Comments Spoke of care for bandage while showering . M5 OT- IP IADL's Start: 03/30/24 09:25 Freq: Status: Active Protocol: Document 03/30/24 09:26 [facility] (Rec: 03/30/24 09:34 [facility] [id number]) OT-Instrumental Activities of Daily Living Deficits IADL Deficits Identified Deficits Home Safety Awareness Awareness of Need for Assistance at Home Good Awareness Ability to Problem Solve Emergency Able to Problem Solve Situations Medication Management Medication Management No Deficits Identified Money Management Money Management No Deficits Identified Meal Preparation Meal Preparation Caregiver Provides Assist Installer Installer Caregiver Provides Assist M6 OT- IP Functional Cognition Start: 03/30/24 09:25 Freq: Status: Active Protocol: Document 03/30/24 09:26 [facility] (Rec: 03/30/24 09:34 [facility] [id number]) Cognitive Factors Limiting Selfcare Function Cognitive Ability Level of Alertness Alert Patient Orientation Name,Age,Birthday,Month,Date, Year,Day of Week,Place, Situation Attention Span Ability Capable of Focused Attention, Capable of Sustained Attention Ability to Follow Commands Able to Follow One Step Commands Safety Awareness Underestimates Need for Assistance Cognitive Comments Cognitive Assessment Comments Pt is a bit impulsive and needing cues to slow down and follow her anterior precautions. OT- Vision and Hearing OT- Hearing Assessment OT- Hearing Assessment WFL M7 OT- IP Mobility and Balance Start: 03/30/24 09:25 Freq: Status: Active Protocol: Document 03/30/24 09:26 [facility] (Rec: 03/30/24 09:34 [facility] [id number]) OT- Bed Mobility Assessment Supine to Sit Supine to Sit Assist Standby Assistance Sit to Supine Sit to Supine Assist Standby Assistance OT-Transfer Assessment Sit to and From Stand Sit to and from Stand Standby Assistance Transfers Transfer Ability Standby Assistance Technique Transfer Destination Bed,Chair Transfer Technique Stand Step Pivot Devices Transfer Assistive Devices Gait Belt,Front Wheeled Walker Comments Mobility Comments SBA with FWW, pt mainly just needing vc to slow down and follow her hip precautions. OT- Balance Assessment Sitting Balance and Reactions Static Sitting Balance Ability Normal Dynamic Sitting Balance Ability Good Standing Balance and Reactions Static Standing Balance Ability Good Dynamic Standing Balance Ability Good M8 OT- IP Objective Assessments Start: 03/30/24 09:25 Freq: Status: Active Protocol: Document 03/30/24 09:26 [facility] (Rec: 03/30/24 09:34 [facility] [id number]) OT Gross Range of Motion Upper Extremity Range of Motion ROM Impairments WFL for needs OT Strength Comments Strength Comments WFL for needs. M9 OT- IP Assessment and Plan Start: 03/30/24 09:25 Freq: Status: Active Protocol: Document 03/30/24 09:26 [facility] (Rec: 03/30/24 09:34 [facility] [id number]) OT Summary Assessment and Plan Potential Rehabilitation Potential Excellent Analytic Complexity at Evaluation Low Summary OT Impairments Pain,Balance,Functional Mobility,Dressing,Toileting, Bathing,Toilet Transfers, Shower Transfers Progress Towards Goals Progressing Toward Goals Goals Grooming Goal Independent Dressing Goal Independent,Intern Brand,Sock Aid Bathing Goal Minimal Assistance Toilet Transfer Goal Independent Shower Transfer Goal Standby Assistance Days to Meet Goals 2 Frequency of Treatment Frequency Of Treatment Once a Day Treatment Plan OT Treatment Plan ADL Training,Functional Mobility,Patient/Family Education,Discharge Planning Discharge Recommendations OT Discharge Recommendations Home with Assistance, Outpatient PT Transportation Needs at Discharge Private Vehicle
--- NOTE | 2024-03-30 15:12 | CM.DANOTE ---
Initial DCP Assessment Visit Note Reviewed EMR and team rounds for status updates. Met with pt and spouse at bedside to introduce self and role. Pt was found to be alert/oriented, pain well managed, sitting upright in the recliner eating her lunch. Pt resides independently at baseline with her spouse in their own home in [place]. She has been medically cleared for home d/c, her spouse will transport her home after lunch. She denies any CM d/c assistance or resource needs at this time. Payor: Medicare Attending: Dr. Beatty Discharge Planning/Care Management Advanced directive, confirm from FAMILY Start: 03/29/24 13:15 Freq: Q24H Status: Discharge Protocol: Document 03/29/24 13:15 [facility] (Rec: 03/29/24 15:04 CM [id number]) Advance Directive, confirm on record Time 15:03 Person contacted Pt Copy received No CM Discharge Assessment Start: 03/30/24 15:10 Freq: Status: Active Protocol: Document 03/30/24 15:11 [facility] (Rec: 03/30/24 15:12 [facility] [id number]) Discharge Planning Assessment Assigned Animal Behaviourist CAYDEN Champion Advance Directives? Yes Advance Directives on File No History Provided By Patient,Family Member,Medical Record Expected Length of Stay 1 Has Patient been admitted in last 30 No days? Prior Living Arrangements House Household Members spouse Type of transporation used prior to Drives own vehicle admit Independent with ADL's Yes Is patient alert and oriented? Yes Comment N/A Caregiver for Another No DME Already Rented / Owned FWW / Walker Patient/Family Preference OP PT Therapy Barriers to Discharge No Discharge Plan Home Community Services Physical Therapy Transportation Arrangement Spouse Referrals Initiated None needed Whiteboard Updated in Patient Room with Yes name and ext. # of Animal Behaviourist Review Status In Process Please Provide Date Initial DC 03/30/24 Assessment Was Performed Pre-Anesthesia Assessment Start: 03/22/24 09:23 Freq: Status: Discharge Protocol: Document 03/22/24 09:23 [facility] (Rec: 03/22/24 10:20 [facility] [id number]) Pre-Anesthesia Assessment PAC Comment Phone assess 03/22/24 Patient Information Reviewed Via Phone Assessment Assessment Completed With Patient Diagnostic Results BMP/CMP,CBC,EKG Comment Labs/EKG @ [facility] 12/15/23 & outside labs/EKG 01/16/24 scanned Primary Care Provider Carlos Mitchell Comment Pre-op visit 01/19/24 scanned and in surgery folder Seen Specialist in Last 12 Months Yes Specialist Seen Orthopedist 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 Crude Unit Required No Height 157.48 cm Weight 63.957 kg Body Mass Index (BMI) 25.7 Hearing Ability Hearing Impaired,Use of Hearing Aid Visual Assist Magnifying Glass Barriers to Learning None Hx Anesthesia Reactions No Hx Family Anesthesia Reaction No Hx Malignant Hyperthermia No Hx Blood Transfusions No Anesthesia Review Requested No Lactation Consultant No alcohol intake current alcohol intake frequency 1-2 drinks per day Smoking Status Never smoker Substance Use Type [#R] does not use Pain Present Pain Reported Musculoskeletal Symptoms Abnormal Gait,Difficulty Walking,Joint Pain History of Falling (Recent or History of No ) Patient is completely paralyzed or No completely immobile Mental Status Oriented to own ability Is patient on oxygen? No Does patient have BUSTAMANTE/SOB No Hx Sleep Apnea No Currently Taking a Beta Kristen No Can You Climb a Flight of Stairs Without Yes SOB Hx Chest Pain No Hx SOB No Hx Syncope or Dizziness No Anti-Coagulant Therapy No Has a Penology Professor No Cardiac Testing No Hx Pacemaker/ICD No Pacemaker Rep Required? No Cardiac Clearance Received No Diet Type At Home Regular Dysphagia No Gastrointestinal Symptoms None Urinary Catheter Present No Hx Urinary Self Catheterization No Diabetes No: Pre-diabetes HgbA1C 5.6 Date 12/15/23 Patient No Lactating No Hx Drug Resistant Organism No Presence of External or Internal Medical Yes: Charlie hearing aids, charlie eye Devices IOLs Comment No covid symptoms in last 2 months Marital Status Lives With spouse Current Living Arrangements House Number of Floors (Floors) Two Floors Number of Stairs To Enter/Railing? none Support System Spouse Does the Patient Have Assistance After Yes Surgery Patient Discharge Plan Description Return Home Comment Pt advised same day surgery per surgeon Feels Safe in Current Environment Yes Been Physically Hurt or Threatened By a No Person in Current Environment Do you have thoughts of harming yourself None or others? Are you currently considering suicide? No Do you have a plan to hurt yourself or No Plan others? Do You Have Any Spiritual Beliefs That No May Affect Your HC Choices? Do You Have Any Cultural Practices That No May Affect Your HC Choices? Who Can We Speak to About Patient's Care Family, friends Identifying Code for Release of Patient Declines to issue Information Health Care Proxy/Next of Kin Placido () Health Care Proxy or cell: Emergency Contact Name Placido () Emergency Contact or cell: Advance Directives? Yes Advance Directives on File No Requested Patient Bring Advanced Yes Directives DOS Power of Bulker Yes Power of Bulker Name Placido () Power of Bulker or cell: PAC Instructions Assistance for 24 hours post- op,Do not shave/clip surgical site,Durable medical equipment ,Medications to take/avoid,No ETOH/petroleum product on skin DOS,NPO,Post-op transportation,Pre-surgical wash,Sturdy shoes/comfortable clothes,Do not bring valuables and remove jewelry
== END 2024-03-30 12:30 | disposition home or self-care (01) ==
LOC: OR 06:02 → AC 06:05
PROVIDERS: Nurse Anesthetist, Certified Registered; Family Provider Internal Medicine; PCP Nurse Practitioner Family; Referring Provider Orthopaedic Surgery Adult Reconstructive Orthopaedic Surgery; Visit Provider Orthopaedic Surgery Adult Reconstructive Orthopaedic Surgery
PROC: (CPT 27130; principal; 2024-03-29 07:45)
DX: M16.11 Unilateral primary osteoarthritis, right hip (principal); M41.50 Other secondary scoliosis, site unspecified; M43.16 Spondylolisthesis, lumbar region; I10 Essential (primary) hypertension; M25.751 Osteophyte, right hip; E78.00 Pure hypercholesterolemia, unspecified
CPT/HCPCS: 27130; 36415; 73502; 76000; 83880; 85014; 85018; 85025; 87635; 93005; 97116; 97161; 97165; 97530; 97535; C1776; C1713; J0690; J1100; J1171; J2250; J2405; J2704; P9045